=== PATIENT | male | born 1965 | race Caucasian/White ===

== ENCOUNTER 2021-01-30 16:45 | Emergency (ER) | payer OTHER ==
[~2021-01-30 16:45] MED LIST: CELEXA10 MG PO; CYANOCOBAL1000 MCG/1 INJ; ELIQUIS2.5 MG PO; HYDROCODON-ACE1 EAC6 PO; IBUPROFEN200 M1 PO; LORTAB 7.5-3251 EACH PO; NEURONTIN 400400 MG PO; NORCO 10-325 T1 EACH PO; VITAMIN D 40400 UNIT PO; VITAMIN D31250 MCG PO; ZYVOX 600 MG T600 MG PO
== END 2021-01-30 18:17 | disposition home or self-care (01) ==
LOC: ER1 16:45
DX: U07.1 COVID-19 (principal); Z87.891 Personal history of nicotine dependence
CPT/HCPCS: 99283; U0003

== ENCOUNTER → 2021-08-01 | Outpatient (CLI) | payer OTHER | LOC: KOH-I 10:24 | DX: Z87.891 Personal history of nicotine dependence (principal); R91.8 Other nonspecific abnormal finding of lung field | CPT/HCPCS: 71271 ==

== ENCOUNTER → 2022-02-04 | Outpatient (CLI) | payer OTHER | LOC: KOH-I 09:47 | DX: R91.8 Other nonspecific abnormal finding of lung field (principal) | CPT/HCPCS: 71250 ==